=== PATIENT | female | born 1965 | race Caucasian/White ===

== ENCOUNTER 2018-03-24 06:49 | Day surgery (SDC) | END 2018-03-24 11:52 | disposition home or self-care (01) ==

== ENCOUNTER 2019-03-19 11:36 | Emergency (ER) | payer OTHER ==
[~2019-03-19] VITALS: Ht 170.2 cm; Wt 80.0 kg
[~2019-03-19 11:36] MED LIST: BENA5TAB33 PO
[2019-03-19 11:41] VITALS: Ht 170.2 cm; Wt 80.0 kg
[2019-03-19] MEDS ORDERED: KETOROLAC 30 MG INJ IM STA (13:41)
[2019-03-19] MEDS ORDERED: TRAM50TA2 PO (13:48)
[2019-03-19] MEDS ORDERED: CYCL10TA7 PO (13:48)
--- NOTE | 2019-03-19 13:53 | ERD ---
ER Documentation Chief Complaint Chief Complaint lower back pain since yesterday HPI 53-year-old female presents with low back pain since yesterday after awkward movement. She denies fall or history of trauma. Denies any bowel or bladder incontinence, anesthesia, fevers, deficits. She has a history of intermittent back pain. She is taking ibuprofen at home ROS All systems reviewed and are negative except as per history of present illness. Medications Home Meds Active Scripts Cyclobenzaprine Hcl* (Cyclobenzaprine Hcl*) 10 Mg Tablet, 10 MG PO TID, #15 TAB Prov:DORI CERNA MD 03/19/19 Tramadol HCl (Tramadol HCl) 50 Mg Tablet, 50 MG PO Q4 PRN for PAIN, #20 TAB Prov:DORI CERNA MD 03/19/19 Reported Medications Benazepril Hcl* (Benazepril Hcl*) 5 Mg Tablet, 5 MG PO DAILY, #30 TAB 03/24/18 Allergies Allergies: Coded Allergies: No Known Allergy (Verified , 03/24/18) PMhx/Soc History of Surgery: No (CHOLECYSYECTOMY) Anesthesia Reaction: No Hx Neurological Disorder: No Hx Respiratory Disorders: No Hx Cardiac Disorders: Yes (HTN) Hx Psychiatric Problems: No Hx Miscellaneous Medical Probl: No Hx Alcohol Use: No Hx Substance Use: No Hx Tobacco Use: No FmHx Family History: No diabetes, No coronary disease, No other Physical Exam Vitals Vital Signs Date Temp Pulse Resp B/P (MAP) Pulse Ox O2 O2 Flow FiO2 Time Delivery Rate 03/19/19 97.8 78 18 171/73 100 11:41 (105) Physical Exam Const: No acute distress Head: Atraumatic Eyes: Normal Conjunctiva ENT: Normal External Ears, Nose and Mouth. Neck: Full range of motion. No meningismus. Resp: Clear to auscultation bilaterally Cardio: Regular rate and rhythm, no murmurs Abd: Soft, non tender, non distended. Normal bowel sounds Skin: No petechiae or rashes Back: No midline or flank tenderness. Tenderness primarily in the lumbar paraspinous area without midline tenderness or deformities. Negative straight leg raise. Ambulatory without deficits. Ext: No cyanosis, or edema Neur: Awake and alert no appreciable focal neurologic deficits. Psych: Normal Mood and Affect Results 24 hrs Current Medications Medications Dose Sig/Cheng Start Time Status Last (Trade) Ordered Route PRN Stop Time Admin Dose Reason Admin Ketorolac 30 mg ONCE STAT 03/19/19 DC Tromethamine IM 13:41 (Toradol) 03/19/19 13:42 1 tab ONCE ONCE 03/19/19 Acetaminophen PO 14:00 / 03/19/19 14:01 Hydrocodone Bitart (Vansant (5325)) Procedures/MDM Patient presents with signs and symptoms of acute lumbar strain without signs to suggest genitourinary etiology, cauda equina syndrome, epidural abscess, deficits, ischemia, infection. She is given Toradol 30 mg IM and Vansant 5 mg by mouth. She will discharged home with tramadol, Flexeril, continuation of ibuprofen, instructions on back exercises, primary care follow-up and return precautions for fevers, deficits, new worsening symptoms. The patient was stable with no new complaints during the ER course. Clinically, there is no current evidence to suggest meningitis, sepsis, acute abdomen, pneumonia, stroke, acute coronary syndrome, pulmonary embolism, aortic dissection or any other emergent condition appearing to require further evaluation or hospitalization. Patient counseled regarding my diagnostic impression and care plan. Prior to discharge all questions answered. Pt agrees with treatment plan and understands strict return precautions. Pt is instructed to follow up with primary care provider within 24-48 hours. Precautionary instructions provided including instructions to return to the ER if not improving or for any worsening or changing symptoms or concerns. Disclaimer: Inadvertent spelling and grammatical errors are likely due to EHR/dictation software use and do not reflect on the overall quality of patient care. Also, please note that the electronic time recorded on this note does not necessarily reflect the actual time of the patient encounter. Departure Diagnosis: Primary Impression: Hypertension Hypertension type: unspecified Qualified Codes: I10 - Essential (primary) hypertension Additional Impression: Back pain Back pain location: low back pain Chronicity: acute Back pain laterality: right Sciatica presence: without sciatica Qualified Codes: M54.5 - Low back pain Condition: Stable Patient Instructions: Back Exercises, Lumbar, Back Pain (Acute Or Chronic), Hy pertension, Established Referrals: DOCTOR,NOT ON STAFF (PCP) Additional Instructions: Cheque otro vez con lowe doctor primario en el proximo obregon or regresa para mas o nueva simptomas. CONTINUA IBUPRON 600MG CADA 6 HORAS TAMBIEN TEEHEE,DORI N. MD March 19, 2019 13:53
[2019-03-19] MEDS ORDERED: HYDROCODONE/APAP (5/325) TAB PO ONE (14:00)
[2019-03-19 14:51] VITALS: BP 114/76; PULSE 56; RESP 18
== END 2019-03-19 14:51 | disposition home or self-care (01) ==
LOC: FTE 11:36
DX: I10 Essential (primary) hypertension (principal)
CPT/HCPCS: 81003; 81025; 96372; J1885; Z7502; Z7610